=== PATIENT | female | born 1995 | race Caucasian/White ===

== ENCOUNTER 2020-09-14 16:45 | Emergency (ER) | payer OTHER, SELFPAY ==
[2020-09-14 16:57] VITALS: BP 115/68; PULSE 84; RESP 16; TEMP 36.9; O2SAT 100
--- NOTE | 2020-09-14 17:05 | ED.EAR ---
HPI - Ear Problem General Chief complaint: Ear Stated complaint: EARACHE Source: patient and RN notes reviewed Limitations: no limitations History of Present Illness HPI Narrative: The patient, who is nondrinker/nondrinker and a hairdresser, presents with left ear discomfort. Patient states she has a shorter, 1 to 2-day history of left external canal ear discomfort. No fever, discharge, swimming/water exposure, vertigo, loss of hearing; no sore throat, tooth ache, swelling, TMJ tenderness. symptoms are mild, somewhat worse with palpation. Related Data Home Medications Medication Instructions Recorded Confirmed quetiapine [Seroquel] 09/14/20 Allergies Allergy/AdvReac Type Severity Reaction Status Date / Time No Known Allergies Allergy Unverified 08/08/18 10:50 Review of Systems Review of Systems: Narrative: General/Constitutional: No weight loss,fever Eyes: N0: Redness,discharge Ears/Nose/Throat: No: Epistaxis,ear discharge Respiratory: Denies: Hemoptysis Gastrointestinal: No Vomiting, Bleeding-rectal Skin: No Lumps, eruption Neurologic: No Focal Weakness,Sz Hematologic: Denies: Petechiae/Purpura Psychiatric: No: Suicida ideationl All Other Systems: Reviewed and Negative PMFSH Comments At time of signature, agree with nursing past medical, surgical, social and family history. There is no relevant family history pertinent to the presenting complaint Exam Narrative: Exam Narrative: General Appearance: Well appearing, No distress EYE: PERRLA, Conjunctiva clear Ears: External ear normal with intact piercings, TMs benign, mild inflammation of left EAC Nose: Normal nose Mouth/Throat: Normal appearing, Normal lips Neck: Supple Respiratory: Airway patent, No respiratory distress Musculoskeletal: Full ROM Skin: Warm, Dry Neurological: A&O x3, CN II-X intact Psychiatric: Normal mood, Normal affect Course Vital Signs Vital signs: Vital Signs Temperature 98.4 F 09/14/20 16:57 Pulse Rate 84 09/14/20 16:57 Respiratory Rate 16 09/14/20 16:57 Blood Pressure 115/68 09/14/20 16:57 Pulse Oximetry 100 09/14/20 16:57 Temperature 98.4 F 09/14/20 16:57 Pulse Rate 84 09/14/20 16:57 Respiratory Rate 16 09/14/20 16:57 Blood Pressure 115/68 09/14/20 16:57 Pulse Oximetry 100 04/14/21 16:57 Medical Decision Making Vital Signs Vital Signs: Vital Signs Temperature 98.4 F 09/14/20 16:57 Pulse Rate 84 09/14/20 16:57 Respiratory Rate 16 09/14/20 16:57 Blood Pressure 115/68 09/14/20 16:57 Pulse Oximetry 100 09/14/20 16:57 Temperature 98.4 F 09/14/20 16:57 Pulse Rate 84 09/14/20 16:57 Respiratory Rate 16 09/14/20 16:57 Blood Pressure 115/68 09/14/20 16:57 Pulse Oximetry 100 09/14/20 16:57 Discharge Plan Discharge Clinical Impression: Otitis externa Qualifiers: Otitis externa type: unspecified type Chronicity: acute Laterality: left Qualified Code(s): H60.502 - Unspecified acute noninfective otitis externa, left ear Patient Disposition: Home, Self-Care Condition: Stable Instructions: Otitis Externa (ED), Earache (ED) Prescriptions: New nbqvpzro-ufycmhmio-MK 3.5-10,000-1 mg/mL-unit/mL-% solution 4 drp LEFT EAR Q8H Qty: 10 RF: 0 No Action quetiapine [Seroquel] 200 mg Tablet RF: 0 Follow-up/Referrals: Maya,Leigh Palomo MD [Primary Care Provider] -
== END 2020-09-14 17:13 | disposition home or self-care (01) ==
PROVIDERS: Emergency Provider Emergency Medicine; PCP Family Medicine
DX: H60.502 Unspecified acute noninfective otitis externa, left ear (principal)
CPT/HCPCS: 99213; G0463

== ENCOUNTER → 2020-11-16 09:51 | Outpatient (CLI) | payer OTHER, SELFPAY ==
--- NOTE | ~2020-11-16 | US_ITS ---
EXAMINATION: US breast BI limited HISTORY: Palpable lumps of the lower inner right breast and upper outer left breast TECHNIQUE: Limited bilateral breast ultrasound was performed. FINDINGS: There is no evidence of focal abnormal cystic or solid mass in the vicinity of the palpable abnormality of concern in either breast. IMPRESSION: No specific sonographic correlate is identified for the reported palpable abnormality of concern in e ither breast. Further evaluation at this time should be based on clinical assessment. Continued follo w-up physical examination is recommended. BI-RADS Category 1: Negative Reviewed, dictated and finalized at location A. IMPRESSION: No specific sonographic correlate is identified for the reported palpable abnor mality of concern in either breast. Further evaluation at this time should be b ased on clinical assessment. Continued follow-up physical examination is recomm ended. BI-RADS Category 1: Negative
== END ==
PROVIDERS: PCP Family Medicine; Visit Provider Nurse Practitioner Family
DX: N63.14 Unspecified lump in the right breast, lower inner quadrant (principal); N63.21 Unspecified lump in the left breast, upper outer quadrant
CPT/HCPCS: 76642

== ENCOUNTER 2020-11-30 16:51 | Emergency (ER) | payer OTHER, SELFPAY ==
[2020-11-30 16:59] VITALS: BP 128/86; PULSE 89; RESP 16; TEMP 36.8; O2SAT 100
--- NOTE | 2020-11-30 17:03 | ED.URI ---
HPI - URI/Sore Throat General Chief Complaint: Upper Respiratory Infection Stated Complaint: EARACHE/SINUS Source: patient Mode of arrival: ambulatory Limitations: no limitations History of Present Illness HPI Narrative: 25-year-old female presents to [facility] with complaints of left ear pain, dry cough, runny nose and nasal congestion since yesterday. Patient does take Flonase daily. Patient also has been taking avhu-eab-etnmujj Mucinex with minimal relief. Patient denies sick contacts. Patient denies recent travel. Patient reports that she was evaluate here approximately 2 months ago, diagnosed with a left outer ear infection and was given antibiotic eardrops at that time. Patient denies ear drainage, fever, bites, chills, nausea, vomiting or diarrhea MD elicited complaint: rhinorrhea, nasal congestion and other (left ear pain ) Onset (ago): day(s) (1) Consistency: constant Able to tolerate fluids by mouth: Yes Relieving factors: nothing Related Data Home Medications Medication Instructions Recorded Confirmed quetiapine [Seroquel] 09/14/20 Allergies Allergy/AdvReac Type Severity Reaction Status Date / Time No Known Allergies Allergy Unverified 08/08/18 10:50 Review of Systems Constitutional: Constitutional: Denies chills, Denies fatigue, Denies fever(s) and Denies weakness ENT: Denies dysphagia, Denies epistaxis, Reports nasal congestion and Denies sore throat Comments: Left ear pain, runny nose Cardiovascular: Cardiovascular: Denies chest pain, Denies rapid heart rate, Denies radiating jaw, neck or arm pain and Denies slow heart rate Respiratory: Respiratory: Denies chest congestion, Reports cough, Denies dyspnea and Denies wheezing Gastrointestinal: Gastrointestinal: Denies abdominal pain, Denies constipation, Denies diarrhea, Denies nausea and Denies vomiting Integumentary/Breasts: Skin/Breast: Denies rash Neurologic: Denies dizziness PMFSH Social History Social History (Updated 11/30/20 @ 17:05 by Vianca Palacios APRN) Smoking status: Never smoker Occupation/Education: occupation Gender identity (if verbalized by the patient): Female Comments At time of signature, I agree with nursing past medical, surgical, social and family history. There is no relevant family history pertinent to the presenting complaint. Exam Const: General: no acute distress and alert Nutritional Appearance: well nourished Orientation/consciousness: patient oriented x3 HENMT: Head: normal to inspection Ears: TM's normal bilaterally and Abnormal EAC present edema on the left and EAC tenderness on the left; no cerumen impaction, no excessive cerumen, no foreign body and no otic discharge General nose exam: Normal external nose present and Normal nares present Face and sinus: normal facial exam and sinuses nontender Mouth: Yes Normal oral and palatal mucosa present and Yes moist mucous membranes Throat: posterior oropharynx normal and uvula midline Neck: Neck: normal visual inspection Resp: Effort & Inspection: normal respiratory effort, not labored, not tachypneic and no use of accessory muscles Auscultation: clear to auscultation bilaterally, no rales, no rhonchi and no wheezes Cardio: Rate: regular rate, not bradycardic and not tachycardic Rhythm: regular rhythm Skin: General skin exam: normal color, no jaundice and no pallor Rashes: no rashes Wounds: no wounds Neuro: General: patient oriented x3, moves all extremities, no meningeal signs and no focal motor deficits Speech: normal speech Psych: Appearance: grossly normal Mental Status: mental status grossly normal Affect: normal affect Attitude: cooperative Thought content: Yes Normal thought content present Course Vital Signs Vital signs: Vital Signs Temperature 36.8 C 11/30/20 16:59 Pulse Rate 89 11/30/20 16:59 Respiratory Rate 16 11/30/20 16:59 Blood Pressure 128/86 11/30/20 16:59 Pulse Oximetry 100 11/30/20 16:59 Temp
== END 2020-11-30 17:18 | disposition home or self-care (01) ==
PROVIDERS: Emergency Provider Nurse Practitioner Family; PCP Family Medicine
DX: H60.502 Unspecified acute noninfective otitis externa, left ear (principal)
CPT/HCPCS: 99213; G0463

== ENCOUNTER 2021-03-03 18:39 | Emergency (ER) | payer OTHER, SELFPAY ==
--- NOTE | 2021-03-03 18:41 | ED.FEMALEGU ---
HPI - Female Genitourinary General Chief complaint: Urogenital-Female Stated complaint: UTI SYMPTOMS Time Seen by Provider: 03/03/21 18:42 Source: patient and RN notes reviewed History of Present Illness HPI Narrative: Patient is a 25-year-old female who presents the urgent care with complaints of a possible UTI. Patient states that started a few days ago with dysuria and she was able to increase her water intake to resolve some of the symptoms. Patient states that now she is having a lot of frequency and urgency as well as lower abdominal cramping and mild low back pain. Patient denies of any blood in the urine, nausea, vomiting fever. States that she has been taking cranberry pills. No other acute complaints. No acute distress noted. Patient read the plan of care. Some parts of this dictation were generated by voice recognition software and may contain typographical and/or grammatical inaccuracies. Related Data Home Medications Medication Instructions Recorded Confirmed quetiapine [Seroquel] 09/14/20 Allergies Allergy/AdvReac Type Severity Reaction Status Date / Time No Known Allergies Allergy Unverified 08/08/18 10:50 Review of Systems Review of Systems: CONSTITUTIONAL: Denies fever, chills, or sweats. EYES: Denies visual changes, redness, or discharge. ENT: Denies rhinorrhea, congestion, sore throat, or otalgia. CARDIOVASCULAR: Denies chest pain, palpitations, or edema. RESPIRATORY: Denies cough or dyspnea. GASTROINTESTINAL: Reports of lower abdominal cramping without nausea, vomiting or diarrhea GENITOURINARY: Reports of dysuria, frequency and urgency SKIN: Denies rash or itching. MUSCULOSKELETAL: Reports of mild low back pain NEUROLOGIC: Denies headache, numbness, or weakness. All other systems reviewed are negative, except as documented in HPI. PMFSH Social History Social History (Updated 11/30/20 @ 17:05 by Vianca Palacios APRN) Smoking status: Never smoker Gender identity (if verbalized by the patient): Female Comments At the time of my signature, I reviewed and agree with the nursing past medical, surgical, social, and family history. There is no relevant family history pertinent to the patient complaint. Exam Narrative: GENERAL: This is a well-nourished, well-developed patient, in no apparent distress. HEAD: normocephalic, atraumatic. EYES: PERRL. Sclera clear/white. Vision is grossly intact. EARS: External ears normal NOSE: External nose normal with no obvious nasal discharge, nares without redness, no rhinorrhea. THROAT: Mucous membranes moist NECK: Neck supple CARDIOVASCULAR: Regular rate and rhythm without murmurs, gallops, or rubs. RESPIRATORY: Clear to auscultation. Breath sounds equal bilaterally. No wheezes, rales, or rhonchi. GASTROINTESTINAL: Abdomen soft, non-tender, nondistended. SKIN: warm, intact with no suspicious lesions or rash, good texture and turgor. NEURO: awake, alert, and oriented to person, place and time. There were no obvious focal neurologic abnormalities. EXTREMITIES: No clubbing, cyanosis, or edema. BACK: Negative bilateral CVA tenderness Course Vital Signs Vital signs: Vital Signs Temperature 98.2 F 03/03/21 18:47 Pulse Rate 75 03/03/21 18:47 Respiratory Rate 16 03/03/21 18:47 Blood Pressure 134/96 H 03/03/21 18:47 Pulse Oximetry 100 03/03/21 18:47 Temperature 98.2 F 03/03/21 18:47 Pulse Rate 75 03/03/21 18:47 Respiratory Rate 16 03/03/21 18:47 Blood Pressure 134/96 H 03/03/21 18:47 Pulse Oximetry 100 03/03/21 18:47 Reviewed-patient is informed that they may have pre-hypertension or hypertension based on a blood pressure reading in the department. I recommend the patient call the primary care provider listed on their discharge instructions or a physician of their choice this week to arrange follow-up for further evaluation of possible pre-hypertension or hypertension. MDM - Female Genitourinary MDM Narrative Med
[2021-03-03 18:47] VITALS: BP 134/96; PULSE 75; RESP 16; TEMP 36.8; O2SAT 100
== END 2021-03-03 19:00 | disposition home or self-care (01) ==
PROVIDERS: Emergency Provider Nurse Practitioner Family; PCP Family Medicine
DX: N39.0 Urinary tract infection, site not specified (principal)
CPT/HCPCS: 81003; 87086; 99213; G0463

== ENCOUNTER 2021-08-13 11:19 | Emergency (ER) | payer OTHER, SELFPAY ==
[2021-08-13 11:25] VITALS: BP 118/84; PULSE 115; RESP 20; TEMP 37.3; O2SAT 99
--- NOTE | 2021-08-13 11:44 | ED.URI ---
HPI - URI/Sore Throat General Chief Complaint: Upper Respiratory Infection Stated Complaint: fever,chills,sore throat,headache Time Seen by Provider: 08/13/21 11:30 Source: patient and RN notes reviewed History of Present Illness HPI Narrative: Patient is a 25-year-old female who presents the urgent care with complaints of fever, body aches, headache and sore throat. Patient states that she woke up with her symptoms this morning and has taken ibuprofen prior to her arrival. Patient denies of any known ill contacts. Denies any nausea or vomiting. No other acute complaints. No acute distress noted. Patient aware of the plan of care. Some parts of this dictation were generated by voice recognition software and may contain typographical and/or grammatical inaccuracies. Related Data Home Medications Medication Instructions Recorded Confirmed quetiapine [Seroquel] 200 mg PO DAILY 09/14/20 08/13/21 Allergies Allergy/AdvReac Type Severity Reaction Status Date / Time No Known Allergies Allergy Verified 08/13/21 11:25 Review of Systems Review of Systems: CONSTITUTIONAL: Reports of fever, chills EYES: Denies visual changes, redness, or discharge. ENT: Denies rhinorrhea, congestion, otalgia. Reports of sore throat CARDIOVASCULAR: Denies chest pain, palpitations, or edema. RESPIRATORY: Denies cough or dyspnea. GASTROINTESTINAL: Denies abdominal pain, nausea, vomiting, or diarrhea. GENITOURINARY: Denies dysuria or hematuria. SKIN: Denies rash or itching. MUSCULOSKELETAL: Denies back pain, joint pain, or myalgia. NEUROLOGIC: Reports of headache All other systems reviewed are negative, except as documented in HPI. PMFSH Social History Social History (Updated 11/30/20 @ 17:05 by Vianca Palacios APRN) Smoking status: Never smoker Gender identity (if verbalized by the patient): Female Comments At the time of my signature, I reviewed and agree with the nursing past medical, surgical, social, and family history. There is no relevant family history pertinent to the patient complaint. Exam Narrative: GENERAL: This is a well-nourished, well-developed patient. Appears slightly fatigued HEAD: normocephalic, atraumatic. EYES: PERRL. Sclera clear/white. Vision is grossly intact. EARS: External ears normal, auditory canals clear and without drainage, TMs normal without perforation. Hearing grossly intact. NOSE: External nose normal with no obvious nasal discharge, nares without redness, no rhinorrhea. THROAT: Mucous membranes moist, posterior pharynx clear. Absent tonsils. Mild postnasal drainage NECK: Neck supple, non-tender without lymphadenopathy CARDIOVASCULAR: Regular rate and rhythm without murmurs, gallops, or rubs. RESPIRATORY: Clear to auscultation. Breath sounds equal bilaterally. No wheezes, rales, or rhonchi. GASTROINTESTINAL: Abdomen soft, non-tender, nondistended. Bowel sounds are active. No hepato-splenomegaly, or palpable masses. No guarding. SKIN: warm, intact with no suspicious lesions or rash, good texture and turgor. NEURO: awake, alert, and oriented to person, place and time. There were no obvious focal neurologic abnormalities. EXTREMITIES: No clubbing, cyanosis, or edema. Course Course Level of Care: Express Care Visit Vital Signs Vital signs: Vital Signs Temperature 99.1 F 08/13/21 11:25 Pulse Rate 115 H 08/13/21 11:25 Respiratory Rate 20 08/13/21 11:25 Blood Pressure 118/84 08/13/21 11:25 Pulse Oximetry 99 08/13/21 11:25 Temperature 99.1 F 08/13/21 11:25 Pulse Rate 115 H 08/13/21 11:25 Respiratory Rate 20 08/13/21 11:25 Blood Pressure 118/84 08/13/21 11:25 Pulse Oximetry 99 08/13/21 11:25 Reviewed MDM - URI/Sore Throat MDM Narrative Medical decision making narrative: Reviewed lab results with the patient. She is aware that strep swab was negative. Educated patient on culture and we will call within 72 hours of cultures positive antibiotics necessary. Flu swab w
== END 2021-08-13 11:55 | disposition home or self-care (01) ==
PROVIDERS: Emergency Provider Nurse Practitioner Family; PCP Family Medicine
DX: B34.9 Viral infection, unspecified (principal); J02.9 Acute pharyngitis, unspecified
CPT/HCPCS: 87081; 87804; 87880; 99213; G0463